=== PATIENT | male | born 1990 | race Caucasian/White ===

== ENCOUNTER 2021-11-15 10:48 | Outpatient (CLI) | payer OTHER, SELFPAY ==
[2021-11-15 12:17] LABS: Chloride* 105 mmol/L (96-114); Potassium* 4.5 mmol/L (3.6-5.1); Sodium* 139 mmol/L (135-149)
[2021-11-15 12:20] LABS: Blood Urea Nitrogen* 24 mg/dL (5-24); Calcium* 9.1 mg/dL (8.4-10.6); Carbon Dioxide* 27 mmol/L (20-32); Cholesterol* 190 mg/dL (90-199); Creatinine* 0.9 mg/dL (0.5-1.5); Estimated Glomerular Filt Rate 115.65; Glucose* 101 mg/dL (60-115)
[2021-11-15 12:21] LABS: HDL Cholesterol* 46 mg/dL (>=40); LDL Cholesterol Calculated 124 mg/dL (<100); Triglycerides* 98 mg/dL (40-149)
[2021-11-15 13:15] LABS: Thyroid Stimulating Hormone* 0.864 uIU/mL (0.270-4.20)
[2021-11-17 02:29] LABS: Testosterone, Adult Male 606 ng/dL (300-1080)
== END 2021-11-15 10:49 | disposition home or self-care (01) ==
PROVIDERS: PCP Family Medicine; Visit Provider Family Medicine
DX: Z00.00 Encounter for general adult medical examination without abnormal findings (principal); R53.83 Other fatigue; F90.2 Attention-deficit hyperactivity disorder, combined type; F41.1 Generalized anxiety disorder
CPT/HCPCS: 80048; 80061; 84403; 84443